=== PATIENT | female | born 1965 | race Caucasian/White ===

== ENCOUNTER → 2016-11-09 | Outpatient (REF) ==
[~2016-11-09] MED LIST: ABILIFY5 MG PO; CYMBALTA60 MG PO; MAGIMIN-FORTE250 MG PO; MULTIPLE VITAMI1 CAP PO; OMEGA-31000 MG PO; PHENTERMINE15 MG PO; PREDNISONE20 MG PO; VITAMIN D32000 IU PO; VITAMIN E1000 U/CAP PO; VIVELLE-DO0.075 MG/2 TD
[2016-11-09 06:19] LABS: BASO % 0.2 % (0.0-2.0); EOS % 0.1 % (0-4.0); GRAN # 9.3 (1.4-6.5); GRAN % 69.1 % (42.2-75.2); LYMPH # 2.9 (1.2-3.4); LYMPH % 21.4 % (20.0-51.0); MEAN CELL VOLUME 90 fl (80.0-100.0); MEAN CORPUSCULAR HGB CONC 34 g/dl (33.0-37.0); MEAN PLATELET VOLUME 9.7 fl (7.4-10.4); MONO # 1.2 (0.1-0.6); MONO % 8.9 % (1.7-9.3); PLATELET COUNT 238 K/mm3 (130-400); RED BLOOD COUNT 3.76 M/mm3 (4.10-5.30); REDCELL DISTRIBUTION WIDTH-CV 12.9 % (11.5-14.5); WHITE BLOOD COUNT 13.4 K/mm3 (4.8-10.8)
[2016-11-09 06:20] LABS: HEMATOCRIT 33.8 % (37.0-47.0); HEMOGLOBIN 11.5 g/dl (12.5-16.0); MEAN CORPUSCULAR HEMOGLOBIN 31 pg (27.0-31.0)
== END ==
LOC: ZMSC 06:15
PROVIDERS: Obstetrics & Gynecology
DX: Z02.89 Encounter for other administrative examinations (principal)

== ENCOUNTER → 2017-01-18 | Outpatient (CLI) | payer BC | LOC: BHSO 09:00 | DX: F41.1 Generalized anxiety disorder (principal) ==

== ENCOUNTER → 2017-03-01 | Outpatient (CLI) | payer BC | LOC: BHSO 14:33 | DX: F33.1 Major depressive disorder, recurrent, moderate (principal) ==

== ENCOUNTER → 2017-05-03 | Outpatient (CLI) | payer BC | LOC: BHSO 09:36 | DX: F33.1 Major depressive disorder, recurrent, moderate (principal) ==

== ENCOUNTER → 2017-06-27 | Outpatient (CLI) | payer BC | LOC: BHSO 09:22 | DX: F41.1 Generalized anxiety disorder (principal) ==

== ENCOUNTER → 2017-08-23 | Outpatient (CLI) | payer OTHER | LOC: MC.RAD 13:29 | DX: Z12.31 Encounter for screening mammogram for malignant neoplasm of breast (principal); Z80.3 Family history of malignant neoplasm of breast ==

== ENCOUNTER → 2017-08-23 | Outpatient (CLI) | payer BC | LOC: BHSO 09:17 | DX: F41.1 Generalized anxiety disorder (principal) ==

== ENCOUNTER → 2017-11-04 | Outpatient (CLI) | payer OTHER | LOC: BHSO 15:11 | DX: F41.1 Generalized anxiety disorder (principal) | CPT/HCPCS: G0463 ==

== ENCOUNTER → 2018-09-11 | Outpatient (CLI) | payer BC | LOC: MC.RAD 08-25 13:00 | DX: Z12.31 Encounter for screening mammogram for malignant neoplasm of breast (principal); N63.21 Unspecified lump in the left breast, upper outer quadrant ==

== ENCOUNTER → 2018-09-18 | Outpatient (CLI) | payer BC | LOC: MC.RAD 09-15 07:30 | DX: N63.20 Unspecified lump in the left breast, unspecified quadrant (principal) | CPT/HCPCS: G0279 ==

== ENCOUNTER → 2019-03-20 | Outpatient (CLI) | payer BC ==
[2019-03-20 10:55] LABS: MAGNESIUM 2.1 mg/dL (1.6-2.3)
[2019-03-20 10:58] LABS: C-REACTIVE PROTEIN 0.5 mg/dL (0.0-0.9)
[2019-03-20 23:20] LABS: ESTRADIOL <10 pg/mL (()); PROGESTERONE <0.1 ng/mL (()); T3 FREE (TRI-IODOTHYRONINE) 2.7 pg/mL (1.7-3.7)
== END ==
LOC: COL.LAB 10:19 → EDSTATUS 10:22
PROVIDERS: Emergency Medicine
DX: F32.4 Major depressive disorder, single episode, in partial remission (principal); Z79.890 Hormone replacement therapy

== ENCOUNTER 2019-08-24 06:25 | Emergency (ER) | payer BC ==
[~2019-08-24] VITALS: Ht 167.6 cm; Wt 81.8 kg
[~2019-08-24 06:25] MED LIST changes: -MAGIMIN-FORTE250 MG PO; +MAGNESIUM200 MG PO; +NATURAL E400 IU PO; -VITAMIN D32000 IU PO; -VITAMIN E1000 U/CAP PO; +VITAMIND3 5000 PO
[2019-08-24 06:28] VITALS: TEMP 98.2
[2019-08-24] MEDS ORDERED: THE MEDICINE S200 M2 PO (06:59)
[2019-08-24 07:02] LABS: BASO % 0.6 % (0.0-2.0); EOS # 0.1 (0.0-0.7); EOS % 1.1 % (0-4.0); GRAN # 2.5 (1.4-6.5); GRAN % 45.4 % (42.2-75.2); HEMATOCRIT 38.5 % (37.0-47.0); HEMOGLOBIN 13.3 g/dl (12.5-16.0); LYMPH # 2.5 (1.2-3.4); MEAN CELL VOLUME 90 fl (80.0-100.0); MEAN CORPUSCULAR HEMOGLOBIN 31 pg (27.0-31.0); MEAN CORPUSCULAR HGB CONC 35 g/dl (33.0-37.0); MEAN PLATELET VOLUME 9.4 fl (7.4-10.4); MONO # 0.4 (0.1-0.6); MONO % 6.7 % (1.7-9.3); PLATELET COUNT 255 K/mm3 (130-400); REDCELL DISTRIBUTION WIDTH-CV 12.8 % (11.5-14.5)
[2019-08-24] MEDS ORDERED: PROZAC40 MG PO (07:02)
[2019-08-24] MEDS ORDERED: LAMICTAL 100MG100 MG PO (07:02)
[2019-08-24] MEDS ORDERED: MELATONIN5 M1 PO (07:03)
[2019-08-24 07:21] LABS: ALANINE AMINOTRANSFERASE 32 U/L (9-52); ALBUMIN 4.6 gm/dL (3.5-5.0); ALKALINE PHOSPHATASE 81 U/L (50-136); ANION GAP 8 mmol/L (7-16); AST,SGOT 74 U/L (15-37); BILIRUBIN,TOTAL 0.4 mg/dL (0.0-1.0); BLOOD UREA NITROGEN 20 mg/dL (7-17); CALCIUM 9.6 mg/dL (8.4-10.2); CARBON DIOXIDE 26 mmol/L (22-30); CHLORIDE 105 mmol/L (98-107); CREATININE, serum 0.86 (0.52-1.25); GLUCOSE 97 mg/dL (74-106); SODIUM 139 mmol/L (137-145); TOTAL PROTEIN 7.4 gm/dL (6.4-8.2)
[2019-08-24] MEDS ORDERED: PROGESTERO50 MG/1 ML PO (07:25)
[2019-08-24] MEDS ORDERED: TESTOPEL PELLET75 MG SQ (07:25)
[2019-08-24] MEDS ORDERED: FERRITIN PO (07:26)
[2019-08-24] MEDS ORDERED: GLUTATHIONE PO (07:27)
[2019-08-24 07:39] LABS: TROPONIN-I < 0.012 ng/mL (0.000-0.035)
[2019-08-24 07:53] LABS: INR 0.9 (0.8-3.0)
[2019-08-24 11:40] VITALS: BP 124/81; PULSE 65
== END 2019-08-24 11:40 | disposition home or self-care (01) ==
LOC: COL.ER 06:25
PROVIDERS: Emergency Medicine
DX: R07.89 Other chest pain (principal); E78.5 Hyperlipidemia, unspecified; Z90.710 Acquired absence of both cervix and uterus

== ENCOUNTER → 2020-08-11 | Outpatient (CLI) | payer OTHER ==
[~2020-08-11] MED LIST changes: +FERRITIN PO; +GLUTATHIONE PO; +LAMICTAL 100MG100 MG PO; +MELATONIN5 M1 PO; +PROGESTERO50 MG/1 ML PO; +PROZAC40 MG PO; +TESTOPEL PELLET75 MG SQ; +THE MEDICINE S200 M2 PO
== END ==
LOC: MC.RAD 09:47
DX: Z12.31 Encounter for screening mammogram for malignant neoplasm of breast (principal)

== ENCOUNTER → 2021-05-18 | Outpatient (REF) | LOC: COL.LAB 16:09 | DX: Z20.822 Contact with and (suspected) exposure to COVID-19 (principal) ==

== ENCOUNTER 2021-09-16 05:26 | Day surgery (SDC) | payer OTHER ==
[~2021-09-16] VITALS: Ht 165.1 cm; Wt 83.9 kg
[2021-09-16] VITALS (11 sets, daily range): BP systolic 17–117; BP diastolic 38–88; PULSE 56–77; TEMP 97.3–98
[2021-09-16] MEDS ORDERED: PROZAC60 MG PO (05:48)
[2021-09-16] MEDS ORDERED: MAG-OX 400400 MG/TAB PO (05:49)
[2021-09-16] MEDS ORDERED: MELATIN 3 MG-11 TAB PO (05:50)
[2021-09-16] MEDS ORDERED: PROMETRIUM100 MG PO (05:51)
[2021-09-16] MEDS ORDERED: LAMICTAL XR50 MG PO (05:52)
[2021-09-16] MEDS ORDERED: GEMTESA75 MG PO (05:52)
[2021-09-16] MEDS ORDERED: COLACE 100100 MG/CAP PO (07:34)
[2021-09-16] MEDS ORDERED: NORCO 325 MG-51 TAB PO (07:34)
--- NOTE | 2021-09-16 10:32 | NUR ---
PT TO FLOOR PER BED WITH REPORT FROM MAGGIE RN @[id number]. PT IS DROWSEY BUT AROUSES TO VERBAL. INCISION CDI TO MIDLINE, VAGINAL PACKING INPLACE. VSS. LUNGS CTA, SCDS PLACED BILATERALLY. IV TO LAC.
--- NOTE | 2021-09-16 17:08 | NUR ---
MESSAGED DR. FERRIS TO INFORM OF BREAKTHROUGH DRAINAGE. REINFORCED PACKING. AWAITING FURTHER ORDERS.
--- NOTE | 2021-09-16 20:15 | NUR ---
Pt. sitting up in bed. Pt. is A&OX3, assessment complete. IV to lt. hand patent, IV fluids infusing per orders. Low transverse abd. incsion well approximated. Vag packing intact. Pt. reports pain at a 5 on pain scale, giving pain meds per orders. Pt. denies further needs, call light within reach.
[2021-09-17 03:25] VITALS: BP 91/49; PULSE 61; TEMP 97.8
--- NOTE | 2021-09-17 06:24 | NUR ---
Sauceda catheter discontinued and vaginal packing removed at this time. Pt. tolerated well. Pt. reports pain at a 4 on pain scale, Gave scheduled tylenol. Pericare provided by the pt. Pt. denies further needs.
[2021-09-17 07:04] LABS: HEMOGLOBIN 11.3 g/dl (12.5-16.0); MEAN CELL VOLUME 91 fl (80.0-100.0); MEAN CORPUSCULAR HEMOGLOBIN 30 pg (27.0-31.0); MEAN CORPUSCULAR HGB CONC 33 g/dl (33.0-37.0); MEAN PLATELET VOLUME 10.1 fl (7.4-10.4); PLATELET COUNT 272 K/mm3 (130-400); RED BLOOD COUNT 3.73 M/mm3 (4.10-5.30); REDCELL DISTRIBUTION WIDTH-CV 12.3 % (11.5-14.5)
[2021-09-17 07:20] LABS: HEMATOCRIT 33.9 % (37.0-47.0)
[2021-09-17 07:22] VITALS: BP 110/54; PULSE 61; TEMP 98.9
--- NOTE | 2021-09-17 10:10 | NUR ---
PT INDEPENDENT IN ROOM, CTRITERIA MET. ABLE TO FULLY EMPTY BLADDER.
--- NOTE | 2021-09-17 10:39 | NUR ---
REVIEWED DISCHARGE INSTRUCTIONS WITH PT. QUESTIONS ANSWERED. INT REMOVED, PT TOLERATED WELL, PT LEFT UNIT AMBULATORY WITH STAFF.
== END 2021-09-17 10:40 | disposition home or self-care (01) ==
LOC: SDCO 05:26 → SURG 10:23 → SDCO 09-17 10:40
PROVIDERS: Urology
DX: T83.721A Exposure of implanted vaginal mesh into vagina, initial encounter (principal); N81.10 Cystocele, unspecified; N39.3 Stress incontinence (female) (male); F41.9 Anxiety disorder, unspecified; F32.A Depression, unspecified; K21.9 Gastro-esophageal reflux disease without esophagitis; G47.33 Obstructive sleep apnea (adult) (pediatric); E66.9 Obesity, unspecified; M19.90 Unspecified osteoarthritis, unspecified site; E78.00 Pure hypercholesterolemia, unspecified; Z79.899 Other long term (current) drug therapy
CPT/HCPCS: OP; A4314; C1762; J0690; J1170; J1885; J2405; J2704; J3010; J7120

== ENCOUNTER → 2021-12-15 | Outpatient (CLI) | payer BC ==
[~2021-12-15] MED LIST changes: +COLACE 100100 MG/CAP PO; +GEMTESA75 MG PO; +LAMICTAL XR50 MG PO; +MAG-OX 400400 MG/TAB PO; +MELATIN 3 MG-11 TAB PO; +NORCO 325 MG-51 TAB PO; +PROMETRIUM100 MG PO; +PROZAC60 MG PO
== END ==
LOC: MC.RAD 08:28
DX: Z12.31 Encounter for screening mammogram for malignant neoplasm of breast (principal)

== ENCOUNTER 2022-01-02 12:02 | Emergency (ER) | payer BC ==
[~2022-01-02] VITALS: Ht 167.6 cm; Wt 87.3 kg
[2022-01-02 12:16] VITALS: TEMP 98.2
[2022-01-02 13:11] LABS: COLLECTION METHOD CLEAN CATCH
[2022-01-02 13:17] LABS: BASO % 0.1 % (0.0-2.0); EOS % 0.1 % (0.0-4.0); GRAN # 7.2 K/mm3 (1.4-6.5); GRAN % 88.4 % (42.2-75.2); HEMATOCRIT 39.6 % (37.0-47.0); HEMOGLOBIN 13.7 g/dl (12.5-16.0); LYMPH # 0.5 K/mm3 (1.2-3.4); LYMPH % 6.4 % (20.0-51.0); MEAN CELL VOLUME 88 fl (80.0-100.0); MEAN CORPUSCULAR HEMOGLOBIN 31 pg (27-31); MEAN CORPUSCULAR HGB CONC 35 g/dl (33.0-37.0); MEAN PLATELET VOLUME 9.2 fl (7.4-10.4); MONO # 0.4 K/mm3 (0.1-0.6); MONO % 4.9 % (1.7-9.3); MUCOUS Present (NOT PRESENT); PH 6 (5-8); PLATELET COUNT 247 K/mm3 (130-400); RED BLOOD COUNT 4.48 M/mm3 (4.10-5.30); REDCELL DISTRIBUTION WIDTH-CV 12.6 % (11.5-14.5); SQUAMOUS EPITHELIAL 0-2 /hpf (0-10); URINE APPEARANCE Hazy (CLEAR/HAZY); URINE BACTERIA None Seen /hpf (NONE SEEN); URINE BILIRUBIN Negative (NEGATIVE); URINE BLOOD Negative (NEGATIVE); URINE COLOR Yellow (YELLOW); URINE GLUCOSE Negative (NEGATIVE); URINE KETONE Trace (NEGATIVE); URINE LEUKOCYTE ESTERASE Negative (NEGATIVE); URINE NITRATE Negative (NEGATIVE); URINE PROTEIN(semi-quant) 1+ (NEGATIVE); URINE UROBILINOGEN Negative (NEGATIVE)
[2022-01-02 13:35] LABS: ALBUMIN 4.1 gm/dL (3.5-5.0); BILIRUBIN,TOTAL 0.6 mg/dL (0.2-1.2); C-REACTIVE PROTEIN 1.83 mg/dL (0.00-0.50); CALCIUM 8.9 mg/dL (8.4-10.2); CREATININE, serum 0.8 mg/dL (0.57-1.11); POTASSIUM 3.7 mmol/L (3.5-4.5)
[2022-01-02] MEDS ORDERED: ZOFRAN ODT4 MG PO (15:07)
[2022-01-02 15:25] VITALS: BP 135/59; PULSE 85
== END 2022-01-02 15:25 | disposition home or self-care (01) ==
LOC: COL.ER 12:02
PROVIDERS: Nurse Practitioner Primary Care
DX: R10.13 Epigastric pain (principal); R11.2 Nausea with vomiting, unspecified
CPT/HCPCS: J2405; J7030; Q9967